=== PATIENT | female | born 1980 | race Caucasian/White ===

== ENCOUNTER 2023-03-08 12:58 | Outpatient (REF) | payer MEDICAID, SELFPAY ==
[2023-03-08 15:57] LABS: MANUAL DIFF FLAG NO
[2023-03-08 16:08] LABS: Basophils Percent Auto 0.3 % (0-2); Eosinophils Absolute Auto 0.1 X10*3/uL (0.0-0.4); Eosinophils Percent Auto 1.4 % (0-4); Hematocrit 46.5 % (37.0-47.0); Hemoglobin 15.1 g/dl (12.0-16.0); Imm Gran Abs Auto 0.03 X10*3/uL (0.00-0.03); Imm Gran Pct Auto 0.3 % (0.0-0.4); Lymphocytes Absolute Auto 2.3 X10*3/uL (1.2-4.9); Lymphocytes Percent Auto 23.8 % (20-40); Mean Corpuscular HGB Conc 32.5 g/dl (31.0-35.0); Mean Corpuscular Hemoglobin 30.9 pg (27.0-33.0); Mean Corpuscular Volume 95.1 fL (80.0-98.0); Mean Platelet Volume 11.9 fL (9.4-12.3); Monocytes Absolute Auto 0.7 X10*3/uL (0.1-1.2); Monocytes Percent Auto 7.1 % (2-11); Neutrophils Absolute Auto 6.4 x10*3/uL (2.0-8.3); Neutrophils Percent Auto 67.1 % (45-73); Platelet Count 206 X10*3/uL (160-400); Red Blood Count 4.89 X10*6/uL (4.20-5.50); Red Cell Distribution Width 12.6 % (11.0-16.0); White Blood Count 9.5 X10*3/uL (4.8-10.8)
[2023-03-08 16:15] LABS: Estimated Average Glucose 114 mg/dL; Hemoglobin A1C 135.7302 umol/L; Hemoglobin A1c % 5.6 % (<6.0)
[2023-03-08 16:27] LABS: Alanine Aminotransferase 43 U/L (0-31); Albumin Level 4.3 g/dL (3.5-5.0); Alkaline Phosphatase 96 U/L (39-117); Anion Gap 11 (12-20); Aspartate Amino Transferase 37 U/L (5-31); Bilirubin Direct 0.1 mg/dL (0.0-0.5); Bilirubin Total 0.4 mg/dL (0.0-1.0); Blood Urea Nitrogen 21 mg/dL (9-16); Calcium 10.1 mg/dL (8.4-10.2); Carbon Dioxide 27 mmol/L (22-29); Chloride 107 mmol/L (96-108); Cholesterol 185 mg/dL (<200); Estimated Glomerular Filt Rate > 60; Glucose Random 106 mg/dL (60-115); HDL Cholesterol 35 mg/dL (>40); LDL Cholesterol Calculated 98 mg/dL (<100); Potassium 3.4 mmol/L (3.3-5.1); Sodium 142 mmol/L (135-145); Total Protein 8.1 g/dL (6.5-8.0); Triglycerides 264 mg/dL (<150)
== END 2023-03-08 12:59 | disposition home or self-care (01) ==
LOC: HO.HHCL 12:58
PROVIDERS: Visit Provider Internal Medicine
DX: I10 Essential (primary) hypertension (principal)
CPT/HCPCS: 36415; 80048; 80061; 80076; 83036; 84443; 85025

== ENCOUNTER 2023-04-06 10:16 | Outpatient (REF) | payer MEDICAID, SELFPAY ==
--- NOTE | ~2023-04-06 | US_ITS ---
EXAMINATION: US THYROID CLINICAL INFORMATION: Enlarged thyroid. COMPARISON: None available. TECHNIQUE: Linear transducer grayscale and color Doppler examination with attention to the region of the thyroid. FINDINGS: SIZE: Measurements of the thyroid lobes and nodules are given in sagittal, anteroposterior and transverse dimensions respectively. Right Thyroid Lobe: 6.0 x 2.3 x 2.6 cm, volume 18.4 mL. Parenchyma: The gland echotexture is heterogeneous. Thyroid vascularity is normal. Left Thyroid Lobe: 5.9 x 2.4 x 2.4 cm, volume 17.3 mL. Parenchyma: The gland echotexture is heterogeneous. Thyroid vascularity is normal. Isthmus: 0.9 cm in maximum AP dimension. Estimated total number of nodules greater than or equal to 1 cm: 3. 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 Location: Right lower pole. Size: 1.0 x 0.7 x 0.7 cm, volume 0.3 mL. Nodule characteristics: Composition: Solid (2). Echogenicity: Hyperechoic (1). Shape: Not taller than wide (0). Margins: Irregular (2). Echogenic Foci: Macrocalcifications (1). ACR TI-RADS total points: 6 ACR TI-RADS category: 4 2. Location: Left mid pole. Size: 1.7 x 1.3 x 1.9 cm, volume 2.2 mL. Nodule characteristics: Composition: Solid (2). Echogenicity: Hyperechoic (1). Shape: Not taller than wide (0). Margins: Smooth (0). Echogenic Foci: None (0). ACR TI-RADS total points: 3 ACR TI-RADS category: 3 3. Location: Left mid/lower pole. Size: 1.3 x 0.7 x 1.3 cm, volume 0.6 mL. Nodule characteristics: Composition: Solid (2). Echogenicity: Hyperechoic (1). Shape: Not taller than wide (0). Margins: Smooth (0). Echogenic Foci: None (0). ACR TI-RADS total points: 3 ACR TI-RADS category: 3 NODES: No lymphadenopathy is seen in the tissue surrounding the thyroid gland. US/US thyroid IMPRESSION: 1. Bilateral thyroid nodules are seen, as detailed. Recommend continued thyroid ultrasound surveillance. 2. There is a diffuse goiter. 3. There is heterogeneous thyroid echotexture, which can be associated with thyroiditis. ACR TI-RADS RECOMMENDATION REFERENCE: Ultrasound-guided fine-needle aspiration, followup ultrasound, no further follow up. * TR1 (0 point) and TR2 (2 points): No FNA or follow up. * TR3 (3 points): FNA if more than or equal to 2.5 cm in maximum dimension, followup ultrasound in 1, 3 and 5 years if 1.5 to 2.4 cm in maximum dimension. * TR4 (4-6 points): FNA if more than or equal to 1.5 cm in maximum dimension, followup ultrasound in 1, 2, 3 and 5 years if 1 to 1.4 cm in maximum dimension. * TR5 (more than or equal to 7 points): FNA if more than or equal to 1 cm in maximum dimension, followup ultrasound every year for 5 years if 0.5 to 0.9 cm in maximum dimension. * TR3, TR4 or TR5 nodules that are below the size threshold for followup receive no follow up.
== END 2023-04-06 10:17 | disposition home or self-care (01) ==
LOC: HO.US 10:16
PROVIDERS: PCP Internal Medicine; Visit Provider Internal Medicine
DX: E04.9 Nontoxic goiter, unspecified (principal)
CPT/HCPCS: 76536

== ENCOUNTER 2023-05-03 10:05 | Outpatient (AMB) | payer MEDICAID, SELFPAY ==
--- NOTE | 2023-05-03 10:09 | A.OFFVIS_ITS ---
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 Available [facility] documentation reviewed. It seems that in 2020, she was actively using cocaine. Then presented with chest pain to [facility] and was found to have high troponins/NSTEMI. Then sent to [facility] where she had diagnostic catheterization showing normal coronary arteries. Subsequently, one further admission under similar circumstances and again cardiac catheterization showed normal coronary arteries. She gets some nonspecific twinge like sensation in the left chest randomly. She states that she is not using cocaine anymore. Otherwise, some shortness of breath with activity off and on. However, she climbs 2 floors to get to her apartment. [facility] Medical History (Updated 05/03/23 @ 10:34 by Chalo Vallejo MD) Essential hypertension Surgical History (Updated 05/03/23 @ 10:14 by Kavitha Jolly MA) Hx of cardiac cath Hx laparoscopic cholecystectomy Family History (Updated 05/03/23 @ 10:15 by Kavitha Jolly MA) Mother Heart problem Father Heart problem (Updated 05/03/23 @ 10:16 by Kavitha Jolly MA) Alcohol intake: never Patient Tobacco Use Status: Never used Tobacco Substance Use Type: Marijuana Review of Systems Const Denies chills, Denies daytime sleepiness, Denies fatigue, Denies fever(s), Denies frequent falls, Denies night sweats, Denies snoring, Denies weakness, Denies weight gain and Denies weight loss Eyes Denies loss of vision ENT Denies dizziness and Denies hearing loss Card Denies chest pain, Denies chest pain with activity, Denies syncope, Denies rapid heart rate, Denies edema, Denies claudication, Denies leg edema, Denies lightheadedness, Denies palpitations, Denies dyspnea, Denies dyspnea on exertion and Denies orthopnea Resp Denies cough, Denies excessive phlegm production, Denies dyspnea, Denies dyspnea on exertion, Denies snoring and Denies wheezing GI Denies abdominal pain, Denies hematochezia, Denies change in bowel habits, Denies change in stool character, Denies heartburn, Denies nausea and Denies vomiting Denies hematuria, Denies urinary frequency and Denies dysuria Musc Denies arthralgias, Denies muscle weakness, Denies numbness and Denies tingling Skin/Breast Denies nail changes and Denies rash Neuro Denies Abnormal speech present, Denies dizziness, Denies syncope, Denies frequent falls, Denies loss of vision, Denies memory loss, Denies numbness, Denies tingling and Denies weakness Psych Denies depression and Denies memory loss Endo Denies fatigue and Denies palpitations Aller/Immun Denies wheezing Physical Exam Vital Signs: Last Vital Signs Pulse 52 05/03/23 10:10 BP 158/80 H 05/03/23 10:10 BMI result Body Mass Index 47.8 Const General: comfortable and no acute distress Orientation/consciousness: patient oriented x3 HEENT Other: Unremarkable Head: Yes normal to inspection Neck Neck: Yes normal visual inspection Chest Chest palpation & inspection: normal inspection of the chest Resp Auscultation: clear to auscultation bilaterally Cardio Palpation: normal PMI Heart sounds: S1 normal heart sound present, S2 normal heart sound present, no gallops, no murmurs and no rubs GI Palpation (GI): Soft to palpation Back/Spine/Pelvis Other: unremarkable Skin General skin exam: no rashes or lesions noted Neuro General: patient oriented x3 Speech: No Abnormal speech present Extrem General: Yes normal to inspection Psych Mental Status: mental status grossly normal Office Procedures EKG Details: EKG shows sinus bradycardia, 52/Min; minimal criteria for LVH; [place] [id number], Complete Assessment & Plan Assessment & Plan (1) NSTEMI (non-ST elevated myocardial infarction): Code(s): I21.4 - Non-ST elevation (NSTEMI) myocardial infarction (2) Cocaine abuse: Code(s): F14.10 - Cocaine abuse, uncomplicated (3) Essential hypertension: Code(s): I10 - Essential (primary) hypertension Plan Cardiac catheterization data reviewed from 2020 as well as 2021. They essentially showed normal coronary arteries. Suspected NSTEMI from cocaine. Unclear cardiac function and hence will get echocardiogram to assess for any cardiomyopathy. Otherwise, abstinence from cocaine and she states she has not used anything recently. Blood pressure on the higher side but she does know her medications and she states she was just started on something. Advised to bring it the next time. Orders: Orders CA echo transthoracic complete Today F14.10 - Cocaine abuse, uncomplicated, I21.4 - Non-ST elevation (NSTEMI) myocardial infarction Coding Level of Care Code New Pt Level 3 (79948) Diagnoses NSTEMI (non-ST elevated myocardial infarction) I21.4 Cocaine abuse F14.10 Essential hypertension I10 CPT Codes EKG - CPT: 88530-[id number], Complete ([id number])
[2023-05-03 10:10] VITALS: BP 158/80; PULSE 52; BMI 47.8
== END 2023-05-03 10:32 | disposition home or self-care (01) ==
PROVIDERS: Referring Provider Internal Medicine; Visit Provider Internal Medicine
DX: I21.4 Non-ST elevation (NSTEMI) myocardial infarction (principal); F14.10 Cocaine abuse, uncomplicated; I10 Essential (primary) hypertension
CPT/HCPCS: 93010; 99203

== ENCOUNTER → 2023-05-03 10:05 | Outpatient (BNVA) | payer MEDICAID, SELFPAY | PROVIDERS: Visit Provider Internal Medicine | DX: I21.4 Non-ST elevation (NSTEMI) myocardial infarction (principal); I10 Essential (primary) hypertension; F14.10 Cocaine abuse, uncomplicated; Z98.890 Other specified postprocedural states | CPT/HCPCS: 93005; 99202 ==

== ENCOUNTER → 2023-05-26 08:13 | Outpatient (REF) | payer MEDICAID, SELFPAY ==
--- NOTE | 2023-05-26 08:15 | CA_ITS ---
Transthoracic Echocardiogram Patient (Last, First, Middle): Camille Finch, Gender: Female Date of : 1980 Age: 43 Procedure Date: 05/26/2023 Procedure Type: Transthoracic Echocardiogram Location: OP Height: 152.4 cm Weight: 107.96 kg BSA: 2.01 m2 Heart Rate: bpm BP: 128 / 80 mmHg Photographer Apprentice: Referring MD: Chalo Vallejo MD Symptoms: I21.4 - Non-ST elevation (NSTEMI) myocardial infarction Study Quality: Adequate ECG Rhythm: Sinus Conclusions: - Normal left ventricular size and systolic function. There is moderately increased left ventricular wall thickness. The visually estimated ejection fraction is between 60-65%. - E/E prime ratio is >15, consistent with elevated filling pressures. - Normal right ventricular cavity size and systolic function. - There is mild dilatation of the ascending aorta measuring 3.60 cm. Findings Left Ventricle Normal left ventricular size and systolic function. There is moderately increased left ventricular wall thickness. The visually estimated ejection fraction is between 60-65%. There is no evidence of regional wall motion abnormalities. Abnormal diastolic function is noted. Spectral Doppler is indicative of an impaired relaxation filling pattern. E/E prime ratio is >15, consistent with elevated filling pressures. Right Ventricle Normal right ventricular cavity size and systolic function. Atria The left atrium is mildly dilated. Aortic Valve The aortic valve was not well visualized. There is no aortic valve stenosis. There is no aortic valve regurgitation. Mitral Valve The mitral valve appears normal. There is no mitral valve regurgitation. There is no mitral valve stenosis. Pulmonic Valve The pulmonic valve is likely normal. Tricuspid Valve Normal tricuspid valve structure. Normal right atrial pressure. There is no evidence of pulmonary hypertension. Great Vessels There is mild dilatation of the ascending aorta measuring 3.60 cm. The visualized portions of the pulmonary artery and branches are normal. Venous The inferior vena cava is normal in size and collapses greater than 50% with inspiration. Pericardium/Pleural There is no evidence of pericardial effusion. Prior Study Comparison No prior study available for comparison. Measurements 2D Linear Measurements IVSd: 1.25 0.6-0.9/0.6-1.0 cm LVIDd: 4.68 3.9-5.3/4.2-5.9 cm LVIDd Index: 2.33 2.4-3.2/2.2-3.1 cm/m2 LVIDs: 2.74 2.0-3.6 cm LVPWd: 1.24 0.7-1.1 cm Ao Root: 3.70 2.1-3.5 cm LA Diam: 3.40 2.7-3.8/3.0-4.0 cm LAIDs Index: 1.69 1.5-2.3 cm/m2 LV Mass: 276.74 67-162/88-224 g LV Mass Index: 137.68 43-95/49-115 g/m2 LVOT Diam: 2.20 3.0+(-)1.3 cm Mitral Valve MV Pk E: 0.75 MV PK A: 0.83 MV Decel Time: 193.00 E/A: 0.90 E'Lateral: 5.77 E'Medial: 4.90 E/E' Med: 15.30 E/E' Lat: 13.00 PHT: 57.00 MVA PHT: 3.86 Decel [place]: 3.88 Aortic Valve AoV Pk Jesus: 1.58 AoV Mn Jesus: 1.01 AoV VTI: 0.37 AoV Pk Grad: 10.00 Aov Mn Grad: 5.00 WOJCIECH Cont.VTI: 1.99 LVOT LVOT Pk Jesus: 1.01 LVOT Mn Jesus: 0.63 LVOT VTI: 0.20 LVOT Pk Grad: 4.00 LVOT Mn Grad: 2.00 LVOT Diam: 2.20 LVOT Area: 3.80 Diastolic Function MV Pk E: 0.75 MV Pk A: 0.83 E/A: 0.90 E'Medial: 4.90 E/E' Med: 15.30 E' Laterial: 5.77 E/E' Lat: 13.00 Right Ventricle TAPSE (mm): 26.00 TVS' Jesus: 14.00 Tricuspid Valve TR Pk Jesus: 1.66 TR Pk Grad: 11.00 RA Press: 3.00 RVSP: 14.00 Great Vessels Aorta Ao Root-2D: 3.70 2.0-3.7 cm Ao Asc: 3.60 2.1-3.4 cm Pulmonary Valve PV Pk Jesus: 0.95 Peak PV Grad: 4.00 Updated in Other Vendor System with Status of Final Randolph Escalera MD electronically signed on 05/27/2023 11:09:16 AM with status of Final
== END ==
LOC: HO.CARD 08:13
PROVIDERS: PCP Internal Medicine; Visit Provider Internal Medicine
DX: I21.4 Non-ST elevation (NSTEMI) myocardial infarction (principal); F14.10 Cocaine abuse, uncomplicated
CPT/HCPCS: 93306

== ENCOUNTER → 2023-05-26 08:15 | Outpatient (BNV) | payer MEDICAID, SELFPAY | PROVIDERS: PCP Internal Medicine; Visit Provider Internal Medicine Cardiovascular Disease | DX: I21.4 Non-ST elevation (NSTEMI) myocardial infarction (principal) | CPT/HCPCS: 93306 ==

== ENCOUNTER 2023-06-22 08:37 | Outpatient (AMB) | payer MEDICAID, SELFPAY ==
[2023-06-22 08:43] VITALS: BP 180/120; PULSE 68; BMI 47.9
--- NOTE | 2023-06-22 08:43 | MHC.OFFVIS ---
Intake Vital Signs 06/22/23 08:43 06/22/23 10:38 Height 5 ft Weight 245 lb 2.464 oz BMI 47.9 BP 180/120 H 164/106 H Blood Pressure Location Lt brachial Lt radial Position Sitting Pulse 68 Pulse Source Pulse Oximeter Intake Visit Reasons: 2 mth fu after echo (HS) Care Navigator Required: No Allergies alcohol [ALCOHOL] Allergy (Unknown, Verified 06/22/23 08:50) RASH Medication List - Last Reconciled 06/22/23 by BHAVIK Murillo amitriptyline 50 mg PO BEDTIME blood pressure monitor As directed - BP check daily, keep log [id number]-cyyjxvmqsozfe-jcib 50-325-40 mg 1 - 2 tabs PO Q4H PRN cholecalciferol (vitamin D3) (Vitamin D3) 25 mcg PO DAILY diltiazem HCl ER 120 mg PO QAM levothyroxine (Tirosint) 100 mcg PO DAILY mirtazapine 15 mg PO BEDTIME multivitamin 1 tab PO DAILY tramadol 50 mg PO Q6H PRN HPI 2 mth fu after echo (HS) HPI Details Camille is a 43-year-old female past medical history of hypertension, NSTEMI in the setting of cocaine use with normal cardiac catheterizations done 2020 and 2021 who presents for follow-up. Today she reports that her blood pressure has been elevated. She was recently started on diltiazem. She does not do blood pressure checks at home as she does not have a cuff. She will feel pressure in her head, pulsation in her ears and heart pounding at times. She has not had any concerning chest discomfort. No chest discomfort with exertion. No shortness of breath, lightheadedness, presyncope, syncope, PND, orthopnea or edema. Taking her meds as directed. Has been going to the gym. [facility] Medical History Essential hypertension Surgical History (Updated 06/22/23 @ 11:26 by BHAVIK Murillo) Hx of cardiac cath Hx laparoscopic cholecystectomy Family History Mother Heart problem Father Heart problem Social History Alcohol intake: never Patient Tobacco Use Status: Never used Tobacco Substance Use Type: Marijuana Review of Systems Const All systems reviewed & are unremarkable except as noted in HPI and below ENT Details: head pressure, pulsation in ears at times Denies dizziness Card Denies chest pain, Denies chest pain at rest, Denies chest pain with activity, Denies rapid heart rate, Denies pedal edema, Denies edema, Denies leg edema, Denies lightheadedness, Denies palpitations, Denies dyspnea, Denies dyspnea on exertion and Denies orthopnea Resp Denies cough, Denies dyspnea and Denies dyspnea on exertion GI Denies hematochezia and Denies change in stool character Musc Denies abnormal gait, Denies limited range of motion, Denies muscle cramps, Denies muscle weakness, Denies numbness, Denies radiating pain into limb, Denies stiffness and Denies tingling Neuro Denies abnormal gait, Denies dizziness, Denies numbness and Denies tingling Endo Denies palpitations Physical Exam Vital Signs: Last Vital Signs Pulse 68 06/22/23 08:43 BP 164/106 H 06/22/23 10:38 BMI result Body Mass Index 47.9 Const General: cooperative, healthy appearing and no acute distress Orientation/consciousness: patient oriented x3 Eyes Sclerae: sclerae normal Neck Neck: Yes normal visual inspection and Yes no JVD Resp Effort & Inspection: normal respiratory effort Auscultation: clear to auscultation bilaterally, no crackles, no rales, no rhonchi and no wheezes Cardio Rate: regular rate Rhythm: regular rhythm Heart sounds: S1 normal heart sound present, S2 normal heart sound present, no gallops, no murmurs and no rubs Peripheral pulses: Peripheral pulses 2+ throughout GI Inspection: Yes normal to inspection Neuro General: patient oriented x3 Extrem General: Yes normal to inspection, No no pedal edema and No calf tenderness Psych Appearance: grossly normal Mental Status: mental status grossly normal Speech and movement: Normal speech and movement present Assessment & Plan Assessment & Plan (1) Essential hypertension: Code(s): I10 - Essential (primary) hypertension Plan: Notes indicate history of hypertension. She states she was recently started on diltiazem 120 mg daily which she did take today. Blood pressure initially quite elevated at 180/120. After 10 minutes of sitting blood pressure recheck 164/106. At time she does report a symptom of head pressure, pulsation and pounding heart. Currently feels well. Echocardiogram done 05/26/2023 shows EF 60-65%, moderate LVH. She needs better blood pressure control. She has diltiazem, will have her increase dose to 240 mg daily.(take 2 of her current tabs daily). Will also start on lisinopril 10 mg daily. Office blood pressure check in 1 week. BMP in 1 week. Will give her a prescription for a blood pressure cuff so that she can continue to monitor at home and keep a log. Instructed on low-salt diet. Cardiology follow-up in 1 month. (2) NSTEMI (non-ST elevated myocardial infarction): Code(s): I21.4 - Non-ST elevation (NSTEMI) myocardial infarction Plan: History of NSTEMI in setting of cocaine use. No longer uses cocaine. Cardiac catheterizations x2 showing normal coronary arteries. Last cardiac catheterization 02/11/2022. Echocardiogram shows normal EF and no reported wall motion abnormalities. At present no reports of anginal sounding symptoms. Need for ongoing complete cocaine cessation reviewed with her. (3) Hx of cardiac cath: Comment: 2020 - catheterization 02/11/2022 shows normal coronary arteries Code(s): Z98.890 - Other specified postprocedural states Plan: As above Plan Time spent on chart review, documentation, interview and assessment Orders: Orders Basic Metabolic Panel Today I10 - Essential (primary) hypertension Medications: New blood pressure monitor As directed - BP check daily, keep log 1 ea 0RF hypertension I10 - Essential (primary) hypertension lisinopril 10 mg PO DAILY 30 tabs 3RF Coding Level of Care Code Est Pt Level 4 (29383) Diagnoses Essential hypertension I10 NSTEMI (non-ST elevated myocardial infarction) I21.4 Hx of cardiac cath Z98.890 Time Spent (min) 28
[2023-06-22 10:38] VITALS: BP 164/106
== END 2023-06-22 09:20 | disposition home or self-care (01) ==
PROVIDERS: PCP Internal Medicine; Visit Provider Nurse Practitioner Family
DX: I10 Essential (primary) hypertension (principal); I21.4 Non-ST elevation (NSTEMI) myocardial infarction; Z98.890 Other specified postprocedural states
CPT/HCPCS: 99214

== ENCOUNTER → 2023-06-22 08:37 | Outpatient (BNVA) | payer MEDICAID, SELFPAY | PROVIDERS: PCP Internal Medicine; Visit Provider Nurse Practitioner Family | DX: I25.2 Old myocardial infarction (principal); I10 Essential (primary) hypertension; Z98.890 Other specified postprocedural states | CPT/HCPCS: 99212 ==

== ENCOUNTER 2023-09-05 09:27 | Outpatient (REF) | payer MEDICAID, SELFPAY ==
[2023-09-05 11:17] LABS: Anion Gap 11 (12-20); Blood Urea Nitrogen 21 mg/dL (9-16); Calcium 9.3 mg/dL (8.4-10.2); Carbon Dioxide 28 mmol/L (22-29); Chloride 107 mmol/L (96-108); Estimated Glomerular Filt Rate > 60; Glucose Random 105 mg/dL (60-115); Sodium 142 mmol/L (135-145)
== END 2023-09-05 09:28 | disposition home or self-care (01) ==
LOC: HO.LAB 09:27
PROVIDERS: PCP Internal Medicine; Visit Provider Nurse Practitioner Family
DX: I10 Essential (primary) hypertension (principal); I21.4 Non-ST elevation (NSTEMI) myocardial infarction; Z98.890 Other specified postprocedural states; Z79.899 Other long term (current) drug therapy
CPT/HCPCS: 36415; 80048; 99212

== ENCOUNTER 2023-09-05 09:27 | Outpatient (AMB) | payer MEDICAID, SELFPAY ==
--- NOTE | 2023-09-05 09:36 | MHC.OFFVIS ---
Intake Vital Signs 09/05/23 09:37 Height 5 ft Weight 256 lb 2.834 oz BMI 50.0 BP 120/70 Blood Pressure Location Lt brachial Position Sitting Pulse 65 Pulse Source Pulse Oximeter Intake Visit Reasons: 4 week follow-up Sports Medicine Trainer Required: No Allergies alcohol [ALCOHOL] Allergy (Unknown, Verified 09/05/23 09:40) RASH Medication List - Last Reconciled 09/05/23 by Buffy Sampson NP-C amitriptyline 50 mg PO BEDTIME blood pressure monitor As directed - BP check daily, keep log [id number]-gytrcimygrgro-[id number] 50-325-40 mg 1 - 2 tabs PO Q4H PRN cholecalciferol (vitamin D3) (Vitamin D3) 25 mcg PO DAILY diltiazem HCl 240 mg PO DAILY levothyroxine (Tirosint) 100 mcg PO DAILY lisinopril 10 mg PO DAILY mirtazapine 15 mg PO BEDTIME multivitamin 1 tab PO DAILY HPI 4 week follow-up HPI Details Camille is a 43-year-old female past medical history of hypertension, NSTEMI in the setting of cocaine use with normal cardiac catheterizations done 2020 and 2021 who presents for follow-up. On last visit her diltiazem was increased and lisinopril was added for elevated blood pressure. Today she reports she has been feeling much better since the change in medications. Her home blood pressures have ranged 117-130 systolic. She no longer has an chest pinching sensation, head pressure or pulsation in her ears. No chest discomfort with exertional activities. No shortness of breath, presyncope, syncope, PND, orthopnea or edema. She ran out of diltiazem 2 days ago. She is leaving tomorrow for a 1 month vacation in [place]. [facility] Medical History Essential hypertension Surgical History Hx of cardiac cath Hx laparoscopic cholecystectomy Family History Mother Heart problem Father Heart problem Social History Alcohol intake: never Patient Tobacco Use Status: Never used Tobacco Substance Use Type: Marijuana Review of Systems Const All systems reviewed & are unremarkable except as noted in HPI and below ENT Denies dizziness Card Denies chest pain, Denies chest pain at rest, Denies chest pain with activity, Denies rapid heart rate, Denies pedal edema, Denies edema, Denies leg edema, Denies lightheadedness, Denies palpitations, Denies dyspnea, Denies dyspnea on exertion and Denies orthopnea Resp Denies cough, Denies dyspnea and Denies dyspnea on exertion GI Denies hematochezia and Denies change in stool character Musc Denies abnormal gait, Denies limited range of motion, Denies muscle cramps, Denies muscle weakness, Denies numbness, Denies radiating pain into limb, Denies stiffness and Denies tingling Neuro Denies abnormal gait, Denies dizziness, Denies numbness and Denies tingling Endo Denies palpitations Physical Exam Vital Signs: Last Vital Signs Pulse 65 09/05/23 09:37 BP 120/70 09/05/23 09:37 BMI result Body Mass Index 50.0 Const General: cooperative, healthy appearing, comfortable and no acute distress Orientation/consciousness: patient oriented x3 Neck Neck: Yes normal visual inspection and Yes no JVD Resp Effort & Inspection: normal respiratory effort Auscultation: clear to auscultation bilaterally, no crackles, no rales, no rhonchi and no wheezes Cardio Jugular venous distension: no JVD Rate: regular rate Rhythm: regular rhythm Heart sounds: S1 normal heart sound present, S2 normal heart sound present, no murmurs and no rubs Neuro General: patient oriented x3 Extrem General: Yes normal to inspection, No no pedal edema and No calf tenderness Psych Appearance: grossly normal Mental Status: mental status grossly normal Speech and movement: Normal speech and movement present Assessment & Plan Assessment & Plan (1) Essential hypertension: Code(s): I10 - Essential (primary) hypertension Plan: History of hypertension. She was on diltiazem for blood pressure control. On last visit blood pressure elevated at 180/120. After 10 minutes of sitting blood pressure recheck 164/106. At time she does report a symptom of head pressure, pulsation and pounding heart. She also recalls having a pinching sensation that occurred periodically in her chest. Echocardiogram done 05/26/2023 shows EF 60-65%, moderate LVH. On last visit her diltiazem was increased up to 240 mg daily and lisinopril 10 mg daily was added. Today she reports she has been feeling much better since the change in medication. Her home blood pressures have been well controlled. She no longer has any concerning symptoms. She has been feeling normal. She ran out of diltiazem 2 days ago. Will send refills for her medications. She did not get the BMP that was ordered. Patient reminded of this and instructed to get it today. Reviewed low-salt diet. Benefits of weight loss and exercise reviewed with her. Cardiology follow-up in 3 month to reassess blood pressure at her request. (2) NSTEMI (non-ST elevated myocardial infarction): Code(s): I21.4 - Non-ST elevation (NSTEMI) myocardial infarction Plan: History of NSTEMI in setting of cocaine use. No longer uses cocaine. Cardiac catheterizations x2 showing normal coronary arteries. Last cardiac catheterization 02/11/2022. Echocardiogram shows normal EF and no reported wall motion abnormalities. At present no reports of anginal sounding symptoms. Need for ongoing complete cocaine cessation reviewed with her. (3) Hx of cardiac cath: Comment: 2020 - catheterization 02/11/2022 shows normal coronary arteries Code(s): Z98.890 - Other specified postprocedural states Plan: As above Plan Time spent on chart review, documentation, interview and assessment Medications: New diltiazem HCl 240 mg PO DAILY 90 caps 3RF Refilled lisinopril 10 mg PO DAILY 90 tabs 3RF Coding Level of Care Code Est Pt Level 3 (01332) Diagnoses Essential hypertension I10 NSTEMI (non-ST elevated myocardial infarction) I21.4 Hx of cardiac cath Z98.890 Time Spent (min) 24
[2023-09-05 09:37] VITALS: BP 120/70; PULSE 65; BMI 50.0
== END 2023-09-05 10:02 | disposition home or self-care (01) ==
PROVIDERS: PCP Internal Medicine; Visit Provider Nurse Practitioner Family
DX: I10 Essential (primary) hypertension (principal); I21.4 Non-ST elevation (NSTEMI) myocardial infarction; Z98.890 Other specified postprocedural states
CPT/HCPCS: 99213